=== PATIENT | female | born 1940 ===

== ENCOUNTER 2017-02-03 12:13 | Emergency (ER) | payer MEDICARE, MEDICAID ==
[2017-02-03 12:14] VITALS: BMI 25.6
[2017-02-03 12:20] VITALS: TEMP 98.3
[2017-02-03] MEDS ORDERED: Sodium Chloride 0.9% 1,000 ML IV STA (12:39)
--- NOTE | 2017-02-03 12:43 | ED PDOC ---
HPI: General Adult Time Seen by Provider: 02/03/17 12:30 Chief Complaint (Nursing): GI Problem Chief Complaint (Provider): Headache History Per: Patient History/Exam Limitations: no limitations Onset/Duration Of Symptoms: Days (x3 days) Current Symptoms Are (Timing): Still Present Additional Complaint(s): 76 y/o female presents to the emergency department with a complaint of a headache (not the worse headache of their life), vomiting (non-bloody), loss of appetite, and generalized weakness x3 days. Reports she would never get headaches but started to experienced them recently although headache would resolve with Tylenol but headache is coming back. States she visited her primary care doctor this morning who advised her to visit the emergency department for dehydration. Denies chest pain, shortness of breath, abd pain, numbness, tingling, leg or arm pain, cough, dizziness, vision changes, or diarrhea. No neck pain. PMD: Dr. Perfecto Burleson MD Past Medical History Reviewed: Historical Data, Nursing Documentation, Vital Signs Vital Signs: Last Vital Signs Temp 98.3 F 02/03/17 12:17 Pulse 78 02/03/17 15:09 Resp 14 02/03/17 15:09 BP 152/75 H 02/03/17 15:09 Pulse Ox 100 02/03/17 15:09 - Medical History PMH: Arthritis, Osteoporosis Denies: Chronic Kidney Disease - Surgical History Surgical History: No Surg Hx - Family History Family History: States: Unknown Family Hx - Social History Current smoker - smoking cessation education provided: No Alcohol: None Drugs: Denies - Home Medications Home Medications: Ambulatory Orders Medication Instructions Recorded ALPRAZolam [Xanax] 1 mg PO BID 05/15/16 Oxycodone HCl/Acetaminophen 1 each PO TID 05/15/16 [Percocet 10-325 mg Tablet] - Allergies Allergies/Adverse Reactions: Allergies Allergy/AdvReac Type Severity Reaction Status Date / Time No Known Allergies Allergy Verified 02/03/17 12:17 Review of Systems ROS Statement: Except As Marked, All Systems Reviewed And Found Negative Constitutional: Positive for: Weakness (Generalized), Other (Loss of appetite) Eyes: Negative for: Vision Change ENT: Negative for: Nose Congestion Cardiovascular: Negative for: Chest Pain Respiratory: Negative for: Cough, Shortness of Breath Gastrointestinal: Positive for: Nausea, Vomiting. Negative for: Abdominal Pain , Diarrhea, Hematemesis Musculoskeletal: Negative for: Neck Pain, Arm Pain, Leg Pain Neurological: Positive for: Headache (Not the worst headache of their life). Negative for: Numbness (tingling), Dizziness Physical Exam - Reviewed Nursing Documentation Reviewed: Yes Vital Signs Reviewed: Yes - Physical Exam Appears: Positive for: Non-toxic, No Acute Distress Head Exam: Positive for: ATRAUMATIC, NORMAL INSPECTION, NORMOCEPHALIC Skin: Positive for: Normal Color, Warm, Dry Eye Exam: Positive for: Normal appearance, EOMI, PERRL ENT: Positive for: Normal ENT Inspection. Negative for: Pharyngeal Erythema Neck: Positive for: Normal, Supple Cardiovascular/Chest: Positive for: Regular Rate, Rhythm. Negative for: Murmur Respiratory: Positive for: Normal Breath Sounds. Negative for: Accessory Muscle Use, Wheezing, Respiratory Distress Gastrointestinal/Abdominal: Positive for: Normal Exam, Soft. Negative for: Tenderness Back: Positive for: Normal Inspection. Negative for: L CVA Tenderness, R CVA Tenderness Extremity: Positive for: Normal ROM. Negative for: Tenderness, Pedal Edema Neurologic/Psych: Positive for: Alert, grapple crew leader II-XII, Oriented (x3). Negative for : Motor/Sensory Deficits, Aphasia, Facial Droop, Other (negative kernig and brudzinski signs) - Laboratory Results Result Diagrams: 02/03/17 12:50 02/03/17 12:50 Interpretation Of Abn Labs: 11.6 wbc - ECG O2 Sat by Pulse Oximetry: 98 (RA) Pulse Ox Interpretation: Normal - CT Scan/US head Other Rad Studies (CT/US): Read By Radiologist Other Rad Interpretation: no acute - Progress ED Course And Treament: 1510: Stable. AAOx3. Pain free. Does not want a lumber puncture at this time. Ambulating with no issues. Has capacity to make decisions. Family at bedside and agree with pt. Pt. aware of possible bleeding and infection of the brain/meningitis that can be missed without the lumbar puncture. Pt. and family aware and do not want it at this time. Family will monitor pt. at home and will come back if she has pain. Medical Decision Making Medical Decision Making: Time: 12:39 Initial impression: Headache Initial plan: --Head w/o contrast CT --EKG --CMP --Troponin I --CBC w/ diff --Reglan 10 mg IV --Sodium Chloride 1L IV 1,000 mls/hr --Reevaluation Time: 13:19 --Head CT FINDINGS: HEMORRHAGE: No intracranial hemorrhage. BRAIN: No mass effect or edema. No atrophy or chronic microvascular ischemic changes. VENTRICLES: Unremarkable. No hydrocephalus. CALVARIUM: Unremarkable. PARANASAL SINUSES: Unremarkable as visualized. No significant inflammatory changes. MASTOID AIR CELLS: Unremarkable as visualized. No inflammatory changes. OTHER FINDINGS: None. IMPRESSION: Normal CT of the Head. Scribe Attestation: Documented by Kiya Wright, acting as a scribe for Nolan Kendall MD. Provider Scribe Attestation: All medical record entries made by the Scribe were at my direction and personally dictated by me. I have reviewed the chart and agree that the record accurately reflects my personal performance of the history, physical exam, medical decision making, and the department course for this patient. I have also personally directed, reviewed, and agree with the discharge instructions and disposition. Disposition - Clinical Impression Clinical Impression: Headache - Patient ED Disposition Is Patient to be Admitted: No Counseled Patient/Family Regarding: Studies Performed, Diagnosis, Need For Followup - Disposition Referrals: [facility] [Outside] - 02/05/17 Disposition: Routine/Home Disposition Time: 15:14 Condition: STABLE Additional Instructions: You are refusing a lumbar puncture at this time. You are aware we could miss a bleed in the brain or an infection of the brain from not getting a lumbar puncture. Return right away for further evaluation and treatment. Instructions: Acute Headache (ED) Forms: [employer] (Telugu)
[2017-02-03 13:00] LABS: BASO % 0.3 % (0.0-2.0); HEMOGLOBIN 12.9 g/dL (12.0-16.0); LYMPH # 1.8 K/uL (1.0-4.3); MEAN CELL VOLUME 87.4 fl (81.0-99.0); MEAN CORPUSCULAR HEMOGLOBIN 28.7 pg (27.0-31.0); MEAN CORPUSCULAR HGB CONC 32.9 g/dL (33.0-37.0); MEAN PLATELET VOLUME 8.7 fl (7.2-11.7); MONO # 0.7 K/uL (0.0-0.8); MONO % 5.7 % (0.0-10.0); RBC 4.48 Mil/uL (3.80-5.20); RED CELL DISTRIBUTION WIDTH 14.7 % (11.5-14.5); WHITE BLOOD COUNT 11.6 K/uL (4.8-10.8)
[2017-02-03 13:16] LABS: ALB/GLOB RATIO 1.1 (1.0-2.1); ALBUMIN 4.5 g/dL (3.5-5.0); ALT/SGPT 29 U/L (9-52); AST/SGOT 28 U/L (14-36); BLOOD UREA NITROGEN 16 mg/dl (7-17); CALCIUM 10.1 mg/dL (8.4-10.2); GFR AFRICAN-AMERICAN > 60; GFR NON-AFRICAN AMERICAN > 60
--- NOTE | 2017-02-03 13:21 | CT ---
PROCEDURE: CT HEAD WITHOUT CONTRAST. HISTORY: headache COMPARISON: None available. TECHNIQUE: Axial computed tomography images were obtained through the head/brain without intravenous contrast. Radiation dose: Total exam DLP = 1119 mGy-cm. This CT exam was performed using one or more of the following dose reduction techniques: Automated exposure control, adjustment of the mA and/or kV according to patient size, and/or use of iterative reconstruction technique. FINDINGS: HEMORRHAGE: No intracranial hemorrhage. BRAIN: No mass effect or edema. No atrophy or chronic microvascular ischemic changes. VENTRICLES: Unremarkable. No hydrocephalus. CALVARIUM: Unremarkable. PARANASAL SINUSES: Unremarkable as visualized. No significant inflammatory changes. MASTOID AIR CELLS: Unremarkable as visualized. No inflammatory changes. OTHER FINDINGS: None. IMPRESSION: Normal CT of the Head.
[2017-02-03 15:10] VITALS: BP 152/75; PULSE 78; RESP 14
[2017-02-03 15:13] VITALS: O2SAT 98
== END 2017-02-03 15:28 | disposition home or self-care (01) ==
LOC: H.ER 12:13
DX: R51 Headache (principal)
CPT/HCPCS: 70450; 80053; 84484; 85025; 96374; 99285; J2765; J7040